=== PATIENT | male | born 1980 | race Caucasian/White ===

== ENCOUNTER 2022-11-03 09:25 | Emergency (ER) | payer BC, SELFPAY ==
--- NOTE | ~2022-11-03 | XR_ITS ---
AP and oblique views of the left ribs, and PA and lateral chest radiographs Clinical History: Pain Findings: No rib fracture is seen. Osseous alignment is anatomic. Lungs are clear, without focal cons olidation or pleural effusion. Cardiomediastinal contour is within normal limits. Soft tissues are un remarkable. Impression: No rib fracture is seen. Reviewed, dictated and finalized at [facility]. UCTION FLOATER Impression: No rib fracture is seen.
[2022-11-03 09:29] VITALS: BP 132/78; PULSE 90; RESP 14; TEMP 37.1; O2SAT 100
--- NOTE | 2022-11-03 10:48 | ED.GENADULT ---
HPI - General Adult General Chief complaint: Unspecified Stated complaint: rib injury Time Seen by Provider: 11/03/22 09:43 Source: patient Mode of arrival: ambulatory Limitations: no limitations History of Present Illness HPI narrative: Patient is a 42-year-old male who presents the ED with report of left lateral lower rib pain. Patient reports he was playing tackle football 6 days ago and injured his left lower lateral ribs. He is unsure how exactly the injury occurred. Patient has had persistent pain since then, worse with certain movements, deep breathing, coughing. He has not tried anything for his pain. He denies trouble breathing or feeling short of breath, denies pain in the front of his chest, denies nausea, vomiting, cough, cold symptoms, fevers. Related Data Allergies Allergy/AdvReac Type Severity Reaction Status Date / Time No Known Allergies Allergy Verified 11/03/22 10:29 Review of Systems Review of Systems: CONSTITUTIONAL: Denies fever, chills, or sweats. ENT: Denies rhinorrhea, congestion, sore throat. CARDIOVASCULAR: Denies chest pain. RESPIRATORY: See HPI. GASTROINTESTINAL: Denies abdominal pain, nausea, vomiting. GENITOURINARY: Denies dysuria or hematuria. SKIN: Denies rash or itching. MUSCULOSKELETAL: See HPI. All systems reviewed & are unremarkable except as noted in HPI and below PMFSH Past Medical History Medical History (Updated 11/03/22 @ 11:00 by Elaine Milian PA-C) No pertinent past medical history Surgical History Surgical History (Updated 11/03/22 @ 10:57 by Elaine Milian PA-C) No pertinent past surgical history Social History Social History (Updated 11/03/22 @ 10:57 by Elaine Milian PA-C) Smoking status: Never smoker Exam Narrative: GENERAL: Well appearing, obese, non-toxic, in no acute distress. HEAD: Normocephalic, atraumatic. NECK: Supple. No adenopathy, no masses. RESPIRATORY: Airway patent, respirations nonlabored. Clear to auscultation bilaterally, no rales, rhonchi, wheezing. No splinting. CARDIOVASCULAR: Regular rate and rhythm without murmurs, rubs, or gallops. Peripheral pulses 2+ and equal bilaterally. ABDOMINAL: Soft, nontender, nondistended, no hepatosplenomegaly. Normoactive BS. MUSCULOSKELETAL: Moves all extremities. Strength/ROM intact without gross deformities. Mild tenderness along left anterior lateral lower rib cage, direct tenderness over ribs and intercostal muscles. No midsternal tenderness to palpation. No midline spinal tenderness. SKIN: Warm, dry, normal color. No rashes. NEURO: A&O X3. Speech clear. Cranial nerves II-XII grossly intact. Steady gait. No ataxic movements. PSYCHIATRIC: Appropriate mood and affect. Normal interaction. Course Vital Signs Vital signs: Vital Signs Temperature 98.7 F 11/03/22 09:29 Pulse Rate 90 11/03/22 09:29 Respiratory Rate 14 11/03/22 09:29 Blood Pressure 132/78 11/03/22 09:29 Pulse Oximetry 100 11/03/22 09:29 Temperature 98.7 F 11/03/22 09:29 Pulse Rate 90 11/03/22 09:29 Respiratory Rate 14 11/03/22 09:29 Blood Pressure 132/78 11/03/22 09:29 Pulse Oximetry 100 11/03/22 09:29 Medical Decision Making MDM Narrative Medical decision making narrative: Patient presented to the ED 6 days status post football injury, pain to left lower ribs. Patient's vital stable upon arrival. No tachypnea, hypoxia. Patient with direct point tenderness over left lower lateral ribs. No other report of chest pain or difficulty breathing. Chest x-ray with left-sided ribs unremarkable, no signs of rib fracture, pneumothorax, focal consolidation. EKG also obtained and nonischemic. Patient feeling better with Toradol in the ED. He had not tried anything for his pain prior to arrival or over the last 6 days. Will prescribe naproxen and a few Flexeril for further pain management at home. Advised patient to follow-up with primary care doctor for further evaluation. H
--- NOTE | 2022-11-03 10:55 | ECG_ITS ---
Measurements Intervals [place] Rate: 66 P: 36 OR: 153 QRS: 31 QRSD: 95 T: 17 QT: 359 QTc: 378 Interpretive Statements SINUS RHYTHM BASELINE ARTIFACT- I, II, AVR NORMAL ECG NO PREVIOUS ECG AVAILABLE FOR COMPARISON Electronically Signed On 11-03-2022 11:11:50 [employer]ORSERAD[employer] GRINDER by Rosendo Castillo D.O.
[2022-11-03] MEDS: KETOROLAC (*BKC) 60 MG/2 ML VIAL IM (11:04)
== END 2022-11-03 11:40 | disposition home or self-care (01) ==
PROVIDERS: Emergency Provider Physician Assistant
DX: S20.212A Contusion of left front wall of thorax, initial encounter (principal); X58.XXXA Exposure to other specified factors, initial encounter; Y93.61 Activity, american tackle football
CPT/HCPCS: 71046; 71100; 93005; 96372; 99283; J1885

== ENCOUNTER 2025-05-06 14:42 | Emergency (ER) | payer SELFPAY ==
--- NOTE | ~2025-05-06 | XR_ITS ---
XR chest 2V 05/06/2025 15:13 Indication: Chest pain Procedure: PA and lateral views of the chest Comparison: 11/03/2022 Findings: Left basilar atelectasis. Large hiatal hernia. Right lung clear. Heart size normal. No pneumothorax. Impression: 1: Left basilar atelectasis. 2: Large hiatal hernia. Reviewed, dictated and finalized at location O. Impression: 1: Left basilar atelectasis. 2: Large hiatal hernia.
[2025-05-06 14:43] VITALS: BP 156/95; PULSE 80; RESP 16; TEMP 36.4; O2SAT 99
--- NOTE | 2025-05-06 14:43 | ECG_ITS ---
Test Date: 2025-05-06 14:48:06 Measurements Intervals [place] Rate: 75 P: 32 CA: 158 QRS: 33 QRSD: 90 T: 29 QT: 346 QTc: 388 Interpretive Statements SINUS RHYTHM NORMAL ELECTROCARDIOGRAM No previous ECG available for comparison Electronically Signed On 05-06-2025 16:09:55 CDT by Karl Saldivar M.D.
--- OUTSIDE RECORDS SUMMARY | 2025-05-06 14:53 | XMS_ITS | Clinical Summary ---
Author Organization [facility] Address [address] [place] [address] Care Team Providers Care Corporate Law Specialist Name Role Phone Raymond Willis DO Primary Care Provider + Nikki Lewis Unavailable [phone] Allergies No known active allergies Medications No known medications Active Problems Problem Noted Date Diagnosed Date Encounter to establish care 12/27/2021 Assessment & Plan (12/27/2021 9:40 AM CDT): No meds Non smoker Does not exercise but will be starting Psoriasis 12/27/2021 Assessment & Plan (12/27/2021 9:41 AM CDT): Medrol dose catherine See dermatology Resolved Problems Problem Noted Date Diagnosed Date Resolved Date Cyst of semilunar cartilage 06/29/2015 12/27/2021 Sprain of anterior cruciate ligament of knee 1 12/27/2021 Immunizations Immunization Administration Dates Next Due Influenza, Unspecified 06/04/2021(Deferred: Zoraida ent Refused) Td, adsorbed 04/04/2007 Surgical History Surgery Date Site/Laterality Comments KNEE SURGERY Family History Medical History Relation Name Comments No Known Problems Father No Known Problems Mother No Known Problems Sister Relation Name Status Comments Father Alive Mother Alive Sister Alive Social History Tobacco Use Types Packs/Day Years Used Date Smoking Tobacco: Never Smokeless Tobacco: Never AUDIT-C Answer Date Recorded Q1: How often do you have a drink containing alc ohol? Never 12/27/2021 Average Number of Drinks Not on file 022 Q3: How often do you have si x or more drinks on one occasion? Never 12/27/2021 PHQ-2 Answer Date Recorded PHQ-2 Total Score (If total score is 3 or more points, staff should administer the PHQ-9) 0 12/27/2021 Personal Safety Answer Date Recorded Getting School Help Needed Not on file 10/03 Sex and Gender Information Value Date Recorded Sex Assigned at Not on file Legal Sex Male 3:36 AM TREATMENT COORDINATOR Gender Identity Not on file Sexual Orientation Not on file Obstetrics History Last Filed Vital Signs Vital Sign Reading Time Taken Comments Blood Pressure 126/82 12/27/2021 9:15 AM CDT Pulse 69 12/27/2021 9:15 AM CDT Temperature 36.1 C (97 F) 12/27/2021 9:15 AM CDT Respiratory Rate 18 12/27/2021 9:15 AM CDT Oxygen Saturation 98% 12/27/2021 9:15 AM CDT Inhaled Oxygen Concentration - - Weight 115.2 kg (254 lb) 10/19/2023 12:47 PM TREATMENT COORDINATOR Height 182.9 cm (6') 10/19/2023 12:47 PM TREATMENT COORDINATOR Body Mass Index 34.45 10/19/2023 12:47 PM TREATMENT COORDINATOR Plan of Treatment Health Maintenance Due Date Last Done Comments Colon Cancer Screening-Colonoscopy 1980 Hepatitis C Screening 1980 Varicella Vaccines (1 of 2 - 13+ 2-dose series) 1993 Hepatitis B Screening 1998 Regular Well Visit/Exam 18-64 1998 HPV Vaccines (1 - 3-dose SCD M series) 2007 DTaP/Tdap/Td Vaccine (1 - Tdap) 04/05/2007 7 Depression Screening 12/27/2022 12/27/2021 Influenza Vaccine (#1) 2025 Pneumococcal vaccine <65 Aged Out No longer eligible based on patient's age to complete this topic [place] Care Teams Corporate Law Specialist Relationship Specialty Start Date End Date Raymond Willis DO PCP - General Family Medicine 12/23/21 Nikki Lewis PA [address] [facility] [address] [place] [address] Physician System Controller 11/22/22
[2025-05-06 15:08] LABS: Hematocrit 38.8 % (42.0-52.0); Hemoglobin 12.0 g/dL (14.0-18.0); Immature Granulocyte Percent A 0.3 % (0-0.5); Lymphocytes Absolute Auto 1.86 K/mm3 (0.9-3.2); Mean Corpuscular HGB Conc 30.9 g/dl (32-36); Mean Corpuscular Hemoglobin 24.1 pg (26-34); Mean Corpuscular Volume 78.1 fl (80-100); Nucleated Red Blood Cells Absolute Auto 0.000 K/mm3 (0.0-0.012); Nucleated Red Blood Cells Perc 0.0 % (0.0-0.2); Platelet Count Result 341 k/mm3 (150-375); Red Blood Count 4.97 M/mm3 (4.6-6.20); White Blood Count 7.6 K/mm3 (4.5-10.0)
[2025-05-06 15:19] LABS: INR 1.0; Prothrombin Time 13.6 Seconds (11.1-14.7)
[2025-05-06 15:20] LABS: Partial Thromboplastin Time 25.8 Seconds (22.3-36.8)
[2025-05-06 15:27] LABS: Alanine Aminotransferase 31 U/L (6-50); Albumin Level 4.0 g/dL (3.5-5.1); Alkaline Phosphatase 60 U/L (38-126); Anion Gap 12 mmol/L (4-12); Aspartate Amino Transferase 46 U/L (17-59); Bilirubin,Total 0.6 mg/dL (0.2-1.3); Blood Urea Nitrogen 10 mg/dL (9-20); Calcium 8.7 mg/dL (8.4-10.2); Carbon Dioxide 20 mmol/L (22-30); Chloride 107 mmol/L (98-107); Estimated CRCL calculation 102 ml/min; Estimated Glomerular Filt Rate > 60; Glucose 105 mg/dL (65-110); Lipase 116 U/L (23-300); Potassium 3.7 mmol/L (3.4-5.0); Sodium 139 mmol/L (137-145); Total Protein 7.8 g/dL (6.3-8.2)
[2025-05-06 15:34] LABS: Troponin I < 0.012 ng/mL (0.000-0.034)
[2025-05-06 16:20] VITALS: BP 148/93; PULSE 70; PULSE 75; RESP 18; O2SAT 100
[2025-05-06] MEDS: ASPIRIN 81 MG CHEWABLE TABLET 324 MG PO (16:24)
--- NOTE | 2025-05-06 16:46 | ED_ITS ---
HPI - Chest Pain General Chief Complaint: Chest Pain Stated Complaint: chest pain Time Seen by Provider: 05/06/25 16:34 Source: patient Mode of arrival: ambulatory Limitations: no limitations History of Present Illness HPI narrative: 45-year-old otherwise healthy here with a complains of right-sided chest pain which has been on and off for last his 1 month. Patient states that pain started when he started playing volleyball along with this kids on April 04 ever since then he has been having intermittent pain. Few days ago he was playing throw ball by started having pain again and now radiating into his right. He denies any shortness of breath. No previous history of CAD he has not seen a her doctor in several years with MD complaint: chest pain Timing of current episode: constant Pain location: right chest Pain radiation: right arm Severity: moderate Quality: aching Relieving factors: nothing Exacerbating factors: nothing Related Data Allergies Allergy/AdvReac Type Severity Reaction Status Date / Time No Known Allergies Allergy Verified 05/06/25 14:45 Review of Systems 2 Review of Systems: All systems reviewed & are unremarkable except as noted in HPI and below Constitutional: Constitutional: Reports no additional constitutional complaints Eyes: Eyes: Reports no additional eye complaints ENT: Reports system reviewed and no additional complaints, except as documented Cardiovascular: Cardiovascular: Reports as per HPI Respiratory: Respiratory: Reports as per HPI Gastrointestinal: Gastrointestinal: Reports no additional gastrointestinal complaints Musculoskeletal: Musculoskeletal: Reports no additional musculoskeletal complaints PMFSH Past Medical History Medical History No pertinent past medical history Surgical History Surgical History No pertinent past surgical history Social History Social History Smoking status: Never smoker Exam 2 Narrative: GENERAL: Well-appearing, well-nourished, and in no acute distress. HEAD: Normocephalic, atraumatic. EYES: PERRLA and EOMI. ENT: Nares clear, no rhinorrhea or epistaxis. Mucous membranes moist. NECK: Supple. CHEST: Clear to auscultation. No respiratory distress. HEART: Regular rate and rhythm. No murmur heard. Normal peripheral pulses. ABDOMEN: Soft, nontender, nondistended, normal active bowel sounds. EXTREMITIES: Normal range of motion. No edema. SKIN: Warm, dry, no rash. NEURO: No focal deficits. Alert and oriented x3. PSYCH: Normal mood and affect. Course Course Emergency Course: Notified patient about the lab work, EKG and chest x-ray findings. Most likely his pain is musculoskeletal also recommended him to follow with GI doctor regarding his hiatal hernia. Vital Signs Vital signs: Vital Signs Temperature 36.4 C L 05/06/25 14:43 Pulse Rate 80 05/06/25 14:43 Respiratory Rate 16 05/06/25 14:43 Blood Pressure 156/95 H 05/06/25 14:43 Pulse Oximetry 99 05/06/25 14:43 Temperature 36.4 C L 05/06/25 14:43 Pulse Rate 70 05/06/25 16:20 Respiratory Rate 18 05/06/25 16:20 Blood Pressure 148/93 H 05/06/25 16:20 Pulse Oximetry 100 05/06/25 16:20 MDM - Chest Pain Differential Diagnosis Differential diagnosis: Likely fracture of rib, atypical chest pain and costochondritis Medical Records Data Attestation: I reviewed the patient's medical records. Lab Data Attestation: I reviewed the patient's lab results. 05/06/25 14:59 05/06/25 14:59 Labs: Lab Results 05/06/25 Range/Units 14:59 WBC 7.6 (4.5-10.0) K/mm3 RBC 4.97 (4.6-6.20) M/mm3 Hgb 12.0 L (14.0-18.0) g/dL Hct 38.8 L (42.0-52.0) % MCV 78.1 L (80-100) fl MCH 24.1 L (26-34) pg MCHC 30.9 L (32-36) g/dl RDW 15.5 H (11.5-14.5) % Plt Count 341 (150-375) k/mm3 MPV 10.9 H (7.4-10.4) fl Immature Gran % (Auto) 0.3 (0-0.5) % Neut % (Auto) 60.4 (45.5-73.1) % Lymph % (Auto) 24.5 (18.3-44.2) % [place] % (Auto) 10.1 H (2.6-8.5) % Eos % (Auto) 3.8 (0-4.4) % Baso % (Auto) 0.9 (0.2-1.2) % Lymph # (Auto) 1.86 (0.9-3.2) K/mm3 [place] # (Auto) 0.8 H (0.1-0.6) K/mm3 Eos # (Auto) 0.3 (0-0.3) K/mm3 Baso # (Auto) 0.1 (0.0-0.1) K/mm3 Abs Immat Gran (auto) 0.02 (0.00-0.031) K/mm3 Absolute Neuts (auto) 4.6 (1.3-6.7) K/mm3 Absolute Nucleated RBC 0.000 (0.0-0.012) K/mm3 Nucleated RBC % 0.0 (0.0-0.2) % PT 13.6 (11.1-14.7) Seconds INR 1.0 APTT 25.8 (22.3-36.8) Seconds Sodium 139 (137-145) mmol/L Potassium 3.7 (3.4-5.0) mmol/L Chloride 107 (98-107) mmol/L Carbon Dioxide 20 L (22-30) mmol/L Anion Gap 12 (4-12) mmol/L BUN 10 (9-20) mg/dL Creatinine 1.12 (0.7-1.3) mg/dL Estim Creat Clear Calc 102 ml/min Estimated GFR > 60 (59 - ) Glucose 105 (65-110) mg/dL Calcium 8.7 (8.4-10.2) mg/dL Total Bilirubin 0.6 (0.2-1.3) mg/dL AST 46 (17-59) U/L ALT 31 (6-50) U/L Alkaline Phosphatase 60 (38-126) U/L Troponin I < 0.012 (0.000-0.034) ng/mL Total Protein 7.8 (6.3-8.2) g/dL Albumin 4.0 (3.5-5.1) g/dL Lipase 116 (23-300) U/L Imaging Data Radiologist's impression: ITS Impressions Chest X-Ray 09/02/25 15:31 Impression: 1: Left basilar atelectasis. 2: Large hiatal hernia. ECG Data EKG #1: ECG completion date: 05/06/25 ECG completion time: 14:48 EKG Interpretation: normal rate (75), sinus rhythm, no ectopy, no ST changes and normal QRS Discharge Plan Discharge Clinical Impression: Non-cardiac chest pain, Hernia, hiatal Patient Disposition: Home Condition: Stable Instructions: Chest Wall Pain (ED), Hiatal Hernia (DC) Additional Instructions: Take pain medication as prescribed Patient Language: Ukrainian Prescriptions: New naproxen 500 mg tablet 500 mg PO BID PRN (Reason: pain) Qty: 14 0RF No Action naproxen 500 mg tablet 500 mg PO BID PRN (Reason: pain) Qty: 20 0RF cyclobenzaprine 5 mg tablet 5 mg PO TID PRN (Reason: muscle spasm) Qty: 5 0RF Follow-up/Referrals: PHYSICIAN,SHEAR SETTER [Primary Care Provider, Internal Medicine] Vinny Allen MD [Physician, Family Practice] Mani Douglas MD [Physician, Gastroenterology]
--- OUTSIDE RECORDS SUMMARY | 2025-05-06 17:18 | XMS_ITS | Clinical Summary ---
Author Organization [facility] Address [address] [place] [address] Care Team Providers Care Freight Clerk Name Role Phone Raymond Willis DO Primary Care Provider + Nikki Lewis Unavailable [phone] Allergies No known active allergies Medications No [...] on file Legal Sex Male 3:36 AM FURRIER APPRENTICE Gender Identity Not on file Sexual Orientation [...] 115.2 kg (254 lb) 10/19/2023 12:47 PM FURRIER APPRENTICE Height 182.9 cm (6') 10/19/2023 12:47 PM FURRIER APPRENTICE Body Mass Index 34.45 10/19/2023 12:47 PM FURRIER APPRENTICE Plan of Treatment Health Maintenance Due Date [...] [place] Care Teams Freight Clerk Relationship Specialty Start Date End Date Raymond Willis DO PCP - General Family Medicine 12/23/21 Nikki Lewis PA [address] [facility] [address] [place] [address] Physician Expediter Clerk 11/22/22
[2025-05-06 17:23] VITALS: O2SAT 99
== END 2025-05-06 17:24 | disposition home or self-care (01) ==
LOC: ANHED 17:17
PROVIDERS: Emergency Provider Family Medicine
DX: R07.89 Other chest pain (principal); K44.9 Diaphragmatic hernia without obstruction or gangrene
CPT/HCPCS: 36415; 71046; 80053; 83690; 84484; 85025; 85610; 85730; 93005; 99284; A9270